=== PATIENT | female | born 1985 | race Caucasian/White ===

== ENCOUNTER 2018-04-15 22:08 | Emergency (ER) | payer SELFPAY | END 2018-04-16 00:24 | disposition left against medical advice (07) | LOC: ER 04-16 00:11 | DX: J10.1 Influenza due to other identified influenza virus with other respiratory manifestations (principal); Z53.21 Procedure and treatment not carried out due to patient leaving prior to being seen by health care provider ==

== ENCOUNTER 2018-05-02 19:02 | Emergency (ER) | payer MEDICAID, OTHER ==
[~2018-05-02] VITALS: Ht 154.9 cm; Wt 55.0 kg
[2018-05-02 21:38] LABS: CLARITY URINE CLEAR (CLEAR); COLOR URINE YELLOW (YELLOW); KETONES URINE NEGATIVE (NEGATIVE); LEUKOCYTE ESTERASE URINE NEGATIVE (NEGATIVE); NITRITE URINE NEGATIVE (NEGATIVE); OCCULT BLOOD URINE NEGATIVE (NEGATIVE); PH URINE 7.5 (4.5-8.0); PROTEIN URINE NEGATIVE (NEGATIVE); SPECIFIC GRAVITY URINE 1.008 (1.005-1.030); UROBILINOGEN URINE 0.2 E.U./dL (0.2-1.0)
[2018-05-03 03:15] VITALS: BP 126/72
== END 2018-05-03 03:18 | disposition home or self-care (01) ==
LOC: ER 20:51
DX: R06.02 Shortness of breath (principal); R07.89 Other chest pain; R05 Cough; F17.200 Nicotine dependence, unspecified, uncomplicated
CPT/HCPCS: 71045; 81003; 81025; 99285

== ENCOUNTER 2018-05-07 23:27 | Emergency (ER) | payer OTHER ==
[~2018-05-07] VITALS: Ht 157.5 cm; Wt 55.0 kg
[2018-05-08 02:00] VITALS: BP 130/80
[2018-05-08] MEDS ORDERED: LORAZEPAM 0.5MG TABLET PO ONE (03:45)
== END 2018-05-08 04:00 | disposition home or self-care (01) ==
LOC: ER 05-08 03:13
DX: F41.9 Anxiety disorder, unspecified (principal)
CPT/HCPCS: 99284